=== PATIENT | female | born 1990 | race Caucasian/White ===

== ENCOUNTER 2016-08-08 18:00 | Emergency (ER) | payer OTHER ==
[2016-08-08 18:06] VITALS: BP 124/73; PULSE 79; TEMP 98.2; BMI 19.2
[2016-08-08] MEDS ORDERED: KETOROLAC TROMETHAMINE 60 MG/2 ML VIAL IM ONE (19:59)
--- NOTE | 2016-08-08 20:04 | PDOC ---
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 Pt is left hand dominant. Pt states pain with movement and to touch. no fever no SOB no cough. Pt also asking to be checked for breast cancer states she has shooting pains to both breasts on saturday, comes and goes. Severity: mild Past History - Past Medical History Allergies/Adverse Reactions: Allergies Allergy/AdvReac Type Severity Reaction Status Date / Time No Known Allergies Allergy Verified 08/08/16 18:06 Home Medications: Ambulatory Orders Cyclobenzaprine HCl [Flexeril] 5 mg PO TID #20 tablet 10/19/11 Ibuprofen [Motrin -] 600 mg PO TID #40 tablet 10/19/11 No Home Medications 0 dose .ROUTE UTDICT 10/19/11 Ondansetron [Zofran] 4 mg PO Q4HWA PRN #10 tablet 12/13/11 Diazepam [Valium] 2 mg PO TID PRN #10 tablet MDD 6mg 08/08/16 Naproxen [Naprosyn -] 500 mg PO BID PRN #20 tablet 08/08/16 Asthma: Yes Cardiac Disorders: Yes (MURMUR) - Family Disease History Comment:: 08/08/16 20:00 none - Immunization History Td Vaccination: Yes TDAP Vaccination: Yes Immunization Up to Date: No - Psycho/Social/Smoking Cessation Hx Anxiety: No Suicidal Ideation: No Smoking Status: No Smoking History: Never smoked Number of Cigarettes Smoked Daily: 0 Hx Alcohol Use: No Drug/Substance Use Hx: No Substance Use Type: None Review of Systems - Review of Systems Able to Perform ROS?: Yes Is the patient limited [place] proficient: No Constitutional: No: Symptoms Reported HEENTM: No: Symptoms Reported Respiratory: No: Symptoms reported Cardiac (ROS): No: Symptoms Reported ABD/GI: No: Symptoms Reported : No: Symptoms Reported Musculoskeletal: Yes: Back Pain (upper back ) Integumentary: Yes: Symptoms Reported *Physical Exam - Vital Signs Last Vital Signs Temp Pulse Resp BP Pulse Ox 98.2 F 79 20 124/73 99 08/08/16 18:03 08/08/16 18:03 08/08/16 18:03 08/08/16 18:03 08/08/16 18:03 - Physical Exam General Appearance: Yes: Nourished, Appropriately Dressed, Thin HEENT: positive: EOMI, BHUPENDRA, TMs Normal, Pharynx Normal Neck: positive: Supple. negative: Tender, Lymphadenopathy (R), Lymphadenopathy (L), Tender lateral Respiratory/Chest: positive: Lungs Clear, Normal Breath Sounds, Other (biateral breasts non tender no palpable lumps or masses on exam , neg discharge or skin dimpling). negative: Chest Tender Cardiovascular: positive: Regular Rhythm, Regular Rate ED Treatment Course - ADDITIONAL ORDERS Additional order review: Laboratory Results 08/08/16 19:30 Urine HCG, Qual Negative - RADIOLOGY Radiology Studies Ordered: Category Date Time Status SPINE-CERVICAL [RAD] Stat Radiology 08/08/16 19:59 Ordered Medical Decision Making - Medical Decision Making 08/08/16 20:05 cc: upper back trapezius pain ttp bilateral breast shooting sensations comes and goes none today will xray neck toradol for pain after negative will refer to sheltered workshop executive director for further workup for shooting pains in breasts no evidence of cellultius *DC/Admit/Observation/Transfer Diagnosis at time of Disposition: Trapezius muscle spasm, Breast pain - Discharge Dispostion Disposition: HOME Condition at time of disposition: Good - Prescriptions Prescriptions: Naproxen [Naprosyn -] 500 mg PO BID PRN #20 tablet PRN Reason: Pain Diazepam [Valium] 2 mg PO TID PRN #10 tablet MDD 6mg PRN Reason: Muscle Spasms - Referrals Referrals: Trisha Zaldivar MD [Primary Care Provider] - Gunner Fitzgerald MD [Staff Physician] - - Patient Instructions Additional Instructions: follow with the orthopedist Dr. Fitzgerald for follow up next week or your primary care doctor if the pain in your neck/upper back does not improve in a few days taking the medication follow with your science analyst for follow up regarding the shooting pain
[2016-08-08] MEDS ORDERED: KETOROLAC TROMETHAMINE 60 MG/2 ML VIAL ONE (20:05)
== END 2016-08-08 21:20 | disposition home or self-care (01) ==
LOC: JERFT 18:00
PROC: 3E0233Z Introduction of Anti-inflammatory into Muscle, Percutaneous Approach (ICD-10-PCS; principal; 2016-08-08)
DX: M62.838 Other muscle spasm (principal); N64.4 Mastodynia; J45.909 Unspecified asthma, uncomplicated; R01.1 Cardiac murmur, unspecified
CPT/HCPCS: 72050-TC; 84703; 96372; 99281-25

== ENCOUNTER 2020-06-29 19:00 | Emergency (ER) | payer OTHER ==
[2020-06-29 19:17] VITALS: BMI 25.9
[2020-06-29 20:30] VITALS: BP 123/72; PULSE 82; TEMP 98.1
== END 2020-06-29 20:45 | disposition home or self-care (01) ==
LOC: JER 19:00
DX: O71.89 Other specified obstetric trauma (principal); Z3A.21 21 weeks gestation of pregnancy
CPT/HCPCS: 99282-25